=== PATIENT | male | born 1990 | race Caucasian/White ===

== ENCOUNTER 2019-01-19 13:33 | Emergency (ER) | payer OTHER ==
[~2019-01-19] VITALS: Ht 170.2 cm; Wt 113.4 kg
[2019-01-19 13:35] VITALS: BP 141/88; Ht 170.2 cm; Wt 113.4 kg
== END 2019-01-19 16:44 | disposition left against medical advice (07) ==
LOC: ED 13:33
DX: Z53.21 Procedure and treatment not carried out due to patient leaving prior to being seen by health care provider (principal)